=== PATIENT | female | born 1965 | race African-American/Black ===

== ENCOUNTER 2017-09-13 03:06 | Emergency (ER) | payer OTHER, SELFPAY ==
[2017-09-13 03:11] VITALS: BP 126/72; PULSE 95; RESP 16; TEMP 36.4; O2SAT 98; BMI 36.9
--- NOTE | 2017-09-13 03:38 | CT_ITS ---
CT abdomen pelvis wo con CLINICAL INDICATION: Constipation ITS.REASON: CONSTIPATION ORDERING PHYSICIAN: Kadeem Esparza MD PATIENT AGE: 51 years COMPARISON: None TECHNIQUE: Axial images obtained with sagittal and coronal reformats. PROCEDURE: Oral Contrast: None IV Contrast: None . FINDINGS: There is a 10 mm noncalcified pulmonary nodule in the left lower lobe. The liver, spleen, adrenal glands, and pancreas have an unremarkable unenhanced CT appearance. The gallbladder is contracted. No calcified stones. No renal calculi or hydronephrosis. No ureteral calculi. Unremarkable appendix. No evidence of diverticulitis, intestinal obstruction, or free air. There is diverticulosis of the sigmoid colon there is a mild amount retained colonic feces. No pelvic mass or focal inflammatory change within the pelvis. No abnormal fluid collections. Scattered small nodes present in the mesentery's. There are degenerative changes in the lumbar spine. No acute bony findings. IMPRESSION: 1. No acute abdominal or pelvic findings. 2. Mild constipation. 3. Diverticulosis of the sigmoid colon. 4. 10 mm left lower lobe pulmonary nodule. Recommend 3 month follow-up dedicated chest CT for further evaluation if patient is high risk for neoplasm and 6 month follow-up if patient is at low risk for neoplasm.
--- NOTE | 2017-09-13 03:38 | XR_ITS ---
XR chest 2V HISTORY: ITS.REASON: BRADYCARDIA ORDERING PHYSICIAN: Kadeem Esparza MD PATIENT AGE: 51 years COMPARISON: 10/01/2016 FINDINGS: Normal heart size. There is a tripolar cardiac pacemaker device present. The coronary sinus placed lead/LV the is now more peripheral overlying the left ventricle. Lungs are clear. No acute bony anomalies. There are degenerative changes in the shoulders with calcific tendinitis of the right shoulder. There is increased density anterior to T10-T11 vertebral body which may be related to osteophyte and may be confirmed with follow-up. Mild lordosis of the thoracic spine. IMPRESSION: No acute finding. Cardiac pacemaker in place as described above now with more peripheral positioning of the LV lead
[2017-09-13 03:52] LABS: Basophils % 0.4 % (0.1-2.0); Eosinophils # 0.2 K/mm3 (0.0-0.4); Eosinophils % 2.7 % (0.1-12.0); Hematocrit 43.4 % (37.0-47.0); Hemoglobin 14.1 g/dL (12.2-16.2); Lymphocytes # 2.7 K/mm3 (0.7-4.5); Mean Corpuscular HGB Conc 32.4 g/dL (31.8-35.4); Mean Corpuscular Hemoglobin 27.1 pg (27.0-31.2); Mean Corpuscular Volume 83.7 fl (81-99); Monocytes # 0.3 K/mm3 (0.1-1.0); Neutrophils # 5.1 K/mm3 (1.8-7.8); Neutrophils % 60.9 % (37.0-80.0); Platelet Count 286 K/mm3 (142-424); Red Blood Count 5.18 M/mm3 (4.20-5.40); Red Cell Distribution Width 12.8 % (11.5-17.5); White Blood Count 8.3 K/mm3 (4.8-10.8)
--- NOTE | 2017-09-13 03:55 | PC.NURSE ---
TO RADIOLOGY PER W/C
[2017-09-13 04:03] LABS: Alanine Aminotransferase 21 U/L (12-78); Albumin Level 3.5 gm/dL (3.4-5.0); Albumin/Globulin Ratio 0.8 (1.1-1.8); Alkaline Phosphatase 105 U/L (46-116); Anion Gap 12.6 mEq/L (5-15); Aspartate Amino Transferase 9 U/L (15-37); Bilirubin,Total 0.4 mg/dL (0.2-1.0); Blood Urea Nitrogen 8 mg/dL (7-18); Calcium 8.9 mg/dL (8.5-10.1); Carbon Dioxide 29 mmol/L (21.0-32.0); Chloride 101 mmol/L (98-107); Creatinine Clearance Estimated 70 mL/min (0-300); Creatinine,Serum 1.27 mg/dL (0.55-1.02); Estimated Glomerular Filt Rate 44 ml/min (>60); GFR (African American) 53 ML/MIN (>60); Globulin 4.5 gm/dl (1.3-3.2); Glucose 114 mg/dL (74-106); Potassium 3.6 mmoL/L (3.5-5.1); Sodium 139 mmol/L (136-145)
--- NOTE | 2017-09-13 04:05 | PC.NURSE ---
BACK FROM RADIOLOGY PER W/C.
[2017-09-13 04:18] LABS: Creatine Kinase 93 U/L (26-192); Troponin I < 0.02 ng/ml (0.00-0.06)
[2017-09-13 04:20] LABS: CKMB Relative Index 0.5 U/L (0-4.0); Creatine Kinase MB < 0.5 mg/ml (0.0-3.6)
--- NOTE | 2017-09-13 04:28 | HMH.EDGENADL ---
ED Disposition Clinical Impression: Pacemaker Constipation Qualifiers: Constipation type: unspecified constipation type Qualified Code(s): K59.00 - Constipation, unspecified Disposition: Home, Self-Care Condition on Discharge: Good Instructions: DI for Constipation Additional Instructions: call pcp for follow up Prescriptions: Polyethylene Glycol 3350 [Miralax 17gm Packet] 17 gm PO DAILY #30 packet - Critical Care Critical Care Time: No Attestation: On 09/13/17, the high probability of a clinically significant, sudden or life threatening deterioration of the following system(s) required my full and direct attention, intervention and personal management. The time I documented below is in addition to time spent performing reported procedures but includes the following listed in this critical care notation. Medical Decision Making - Medical Records Medical records reviewed: Yes: I reviewed the patient's medical records. Vital Signs: 09/13/17 03:11 Temperature 97.6 F Temperature Source Oral Pulse Rate [Right Brachial] 95 H Respiratory Rate 16 Blood Pressure [Right Arm] 126/72 Blood Pressure Mean [Right Arm] 90 Blood Pressure Source [Right Arm] Automatic Cuff Blood Pressure Position [Right Arm] Sitting 02 Sat by Pulse Oximetry 98 Oxygen Delivery Method Room Air - Lab Data Lab results reviewed: Yes: I reviewed the patient's lab results. Lab Results 09/13/17 03:45: WBC 8.3, RBC 5.18, Hgb 14.1, Hct 43.4, MCV 83.7, MCH 27.1, MCHC 32.4, RDW 12.8, Plt Count 286, MPV 8.0, Neut % (Auto) 60.9, Lymph % (Auto) 32.0, [place] % (Auto) 4.0, Eos % (Auto) 2.7, Baso % (Auto) 0.4, Neut # (Auto) 5.1, Lymph # (Auto) 2.7, [place] # (Auto) 0.3, Eos # (Auto) 0.2, Baso # (Auto) 0.0 09/13/17 03:45: Sodium 139, Potassium 3.6, Chloride 101, Carbon Dioxide 29, Anion Gap 12.6, BUN 8, Creatinine 1.27 H, Estimated Creat Clear 70, Estimated GFR 44 L, Est GFR ( Amer) 53 L, Glucose 114 H, Calcium 8.9, Total Bilirubin 0.4, AST 9 L, ALT 21, Alkaline Phosphatase 105, Total Protein 8.0, Albumin 3.5, Globulin 4.5 H, Albumin/Globulin Ratio 0.8 L 09/13/17 03:45: Total Creatine Kinase 93, CK-MB (CK-2) < 0.5, CK-MB (CK-2) Rel Index 0.5, Troponin I < 0.02 Result diagrams: 09/13/17 03:45 09/13/17 03:45 Orders (Tests/Meds): ORDERS Category Date Time Status CT abdomen pelvis wo con Stat Cat Scan 09/13/17 03:38 Ordered Chest XR 2 view (NOT portable) [XR chest 2V] Stat Exams 09/13/17 03:38 Ordered T4 (Thyroxine) Stat Lab 09/13/17 04:30 Ordered TSH [Thyroid Stimulating Hormone] Stat Lab 09/13/17 04:30 Ordered 12-lead EKG Request [ECG Request by /Hans] Stat Y 09/13/17 03:38 Ordered - Radiology Data #1 Image(s): Chest Image Reviewed: Yes I reviewed the patient's radiology image Preliminary Findings: Normal/NAD - CT Data CT Scan: Abdomen, Pelvis Time Received: 04:[address] Reviewed: Yes: I have viewed the radiologist's interpretation Preliminary Findings: Abnormal (see report ) - ECG Data Tracing #1 I reviewed this ECG and interpreted as documented below: Conduction abnormalities present: other (pacemaker) - Bryant Inquiry Pt receiving controlled substance: No General Adult HPI - General Chief complaint: PAIN Stated complaint: low heart rate,bowels ripped open ? Time Seen by Provider: 09/13/17 04:28 Mode of Arrival: Family Vehicle Source of Information: Patient, Medical Record Limitations: No Limitations Description of Symptoms (Recalled from ER Triage Doc. by RN): C/O CONSTIPATION. NO BM X 4 DAYS. C/O LOW HEART RATE WHICH ACCORDING TO PATIENT IS A SIDE EFFECT OF CONSTIPATION. HAS A PACEMAKER. STATES SHE AWAKENS EVERY MORNING AT 2:30 AND FEELS LIKE HER BLOOD STOPS MOVING AND DIZZY - History of Present Illness HPI narrative: pt with c/c of constipation w/o vomniting - Onset (ago): day(s) Location: abdomen - Related Data Home Medications Medication Instructions Recorded Confirmed Atorvas
--- NOTE | 2017-09-13 04:34 | ED_ITS ---
ED Disposition Clinical Impression: Pacemaker Constipation Qualifiers: Constipation type: unspecified constipation type Qualified Code(s): K59.00 - Constipation, unspecified Disposition: Home, Self-Care Condition on Discharge: Good Instructions: DI for Constipation Additional Instructions: call pcp for follow up Prescriptions: Polyethylene Glycol 3350 [Miralax 17gm Packet] 17 gm PO DAILY #30 packet - Critical Care Critical Care Time: No Attestation: On 09/13/17, the high probability of a clinically significant, sudden or life threatening deterioration of the following system(s) required my full and direct attention, intervention and personal management. The time I documented below is in addition to time spent performing reported procedures but includes the following listed in this critical care notation. Medical Decision Making - Medical Records Medical records reviewed: Yes: I reviewed the patient's medical records. Vital Signs: 09/13/17 03:11 Temperature 97.6 F Temperature Source Oral Pulse Rate [Right Brachial] 95 H Respiratory Rate 16 Blood Pressure [Right Arm] 126/72 Blood Pressure Mean [Right Arm] 90 Blood Pressure Source [Right Arm] Automatic Cuff Blood Pressure Position [Right Arm] Sitting 02 Sat by Pulse Oximetry 98 Oxygen Delivery Method Room Air - Lab Data Lab results reviewed: Yes: I reviewed the patient's lab results. Lab Results 09/13/17 03:45: WBC 8.3, RBC 5.18, Hgb 14.1, Hct 43.4, MCV 83.7, MCH 27.1, MCHC 32.4, RDW 12.8, Plt Count 286, MPV 8.0, Neut % (Auto) 60.9, Lymph % (Auto) 32.0 , [place] % (Auto) 4.0, Eos % (Auto) 2.7, Baso % (Auto) 0.4, Neut # (Auto) 5.1, Lymph # (Auto) 2.7, [place] # (Auto) 0.3, Eos # (Auto) 0.2, Baso # (Auto) 0.0 09/13/17 03:45: Sodium 139, Potassium 3.6, Chloride 101, Carbon Dioxide 29, Anion Gap 12.6, BUN 8, Creatinine 1.27 H, Estimated Creat Clear 70, Estimated GFR 44 L, Est GFR ( Amer) 53 L, Glucose 114 H, Calcium 8.9, Total Bilirubin 0.4, AST 9 L, ALT 21, Alkaline Phosphatase 105, Total Protein 8.0, Albumin 3.5, Globulin 4.5 H, Albumin/Globulin Ratio 0.8 L 09/13/17 03:45: Total Creatine Kinase 93, CK-MB (CK-2) < 0.5, CK-MB (CK-2) Rel Index 0.5, Troponin I < 0.02 Result diagrams: 09/13/17 03:45 09/13/17 03:45 Orders (Tests/Meds): ORDERS Category Date Time Status CT abdomen pelvis wo con Stat Cat Scan 09/13/17 03:38 Ordered Chest XR 2 view (NOT portable) [XR chest 2V] Stat Exams 09/13/17 03:38 Ordered T4 (Thyroxine) Stat Lab 09/13/17 04:30 Ordered TSH [Thyroid Stimulating Hormone] Stat Lab 09/13/17 04:30 Ordered 12-lead EKG Request [ECG Request by /Hans] Stat Y 09/13/17 03:38 Ordered - Radiology Data #1 Image(s): Chest Image Reviewed: Yes I reviewed the patient's radiology image Preliminary Findings: Normal/NAD - CT Data CT Scan: Abdomen, Pelvis Time Received: 04:[address] Reviewed: Yes: I have viewed the radiologist's interpretation Preliminary Findings: Abnormal (see report ) - ECG Data Tracing #1 I reviewed this ECG and interpreted as documented below: Conduction abnormalities present: other (pacemaker) - Bryant Inquiry Pt receiving controlled substance: No General Adult HPI - General Chief complaint: PAIN Stated complaint: low heart rate,bowels ripped open ? Time Seen by Provider: 09/13/17 04:28 Mode of Arrival: Family Vehicle Source
[2017-09-13 04:53] LABS: T4 (Thyroxine) 13.1 ug/dl (4.7-13.3); Thyroid Stimulating Hormone 2.63 uIU/ml (0.358-3.740)
[2017-09-13 05:04] VITALS: BP 118/62; PULSE 72; RESP 20; TEMP 36.4; O2SAT 100
== END 2017-09-13 05:15 | disposition home or self-care (01) ==
PROVIDERS: Emergency Provider Emergency Medicine
DX: K59.00 Constipation, unspecified (principal); Z95.0 Presence of cardiac pacemaker; F17.210 Nicotine dependence, cigarettes, uncomplicated; F12.10 Cannabis abuse, uncomplicated; Z79.899 Other long term (current) drug therapy
CPT/HCPCS: 71046; 74176; 80053; 82550; 82553; 84436; 84443; 84484; 85025; 93005; 93041; 99282; 99283

== ENCOUNTER 2019-01-10 16:15 | Emergency (ER) | payer OTHER, SELFPAY ==
[2019-01-10] VITALS (7 sets, daily range): BP systolic 99–120; BP diastolic 45–68; PULSE 85–122; RESP 16–20; TEMP 36.7–36.9; O2SAT 97–100; BMI 61.7
--- NOTE | 2019-01-10 16:24 | XR_ITS ---
XR chest portable HISTORY: ITS.REASON: weakness, heart racing ORDERING PHYSICIAN: Kadeem Andrew MD PATIENT AGE: 53 years COMPARISON: None FINDINGS: The cardiomediastinal silhouette and pulmonary vascularity are within normal limits. The lungs are clear without infiltrates, suspicious nodules, or pleural effusions. Left subclavian Mediport catheter is present and appears to be intact. There is no pneumothorax. No acute bony abnormalities. IMPRESSION: Negative chest, no acute finding
--- NOTE | 2019-01-10 16:34 | PC.NURSE ---
pt notified ER staff at this time that she woke up this morning and the L side of her body and is currently still having tingling on the L side of her face. Notified RAD of ct head stroke protocol at this time, spoke with Thao. Pt did not previously tell ER staff of this during initial triage
--- NOTE | 2019-01-10 16:36 | CT_ITS ---
CT head/brain wo con HISTORY: ITS.REASON: weakness ORDERING PHYSICIAN: Kadeem Andrew MD PATIENT AGE: 53 years COMPARISON: None TECHNIQUE: Axial images obtained without contrast. Brain and bone windows reviewed. All CT scans at the facility use one or more dose reduction, viz: automated exposure control, ma/kV adjustment per patient size (including targeted exams where dose is matched to indication, i.e. head), or iterative reconstruction technique. FINDINGS: There is no mass, acute hemorrhage or extra-axial fluid collection. There are small hypodense areas at the anterior commissure location and this is more prominent on the right. This is a common site for prominent perivascular spaces. Ventricles, sulci and cortical areas appear normal. There were no other areas of abnormal attenuation. There are dystrophic calcification within the vitreous body of the left orbital globe and the left globe is atrophic. There are low-lying cerebellar tonsils which are crowded at the foramen magnum. Visualized portions of the paranasal sinuses and mastoid air cells are clear. There is no acute osseous process. IMPRESSION: No definite acute intracranial process. Anterior commissure hypodensities, more likely prominent perivascular spaces although old lacunar infarcts are in the differential. If symptoms persist consider MRI. 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 Possible low lying cerebellar tonsils versus Chiari I malformation which could also necessary be better evaluated with the MRI if necessary.
--- NOTE | 2019-01-10 16:40 | PC.NURSE ---
pt to CT
[2019-01-10 16:47] LABS: Basophils % 0.7 % (0.1-2.0); Eosinophils # 0.3 K/mm3 (0.0-0.4); Eosinophils % 4.8 % (0.1-12.0); Hemoglobin 11.2 g/dL (12.2-16.2); Lymphocytes % 29.5 % (10-50); Mean Corpuscular HGB Conc 31.9 g/dL (31.8-35.4); Mean Corpuscular Hemoglobin 26.7 pg (27.0-31.2); Mean Corpuscular Volume 83.7 fl (81-99); Mean Platelet Volume 8.4 fl (7.4-10.4); Monocytes # 0.3 K/mm3 (0.1-1.0); Monocytes % 4.1 % (1.7-9.3); Neutrophils # 4.1 K/mm3 (1.8-7.8); Neutrophils % 60.9 % (37.0-80.0); Platelet Count 330 K/mm3 (142-424); Red Blood Count 4.19 M/mm3 (4.20-5.40); Red Cell Distribution Width 13.9 % (11.5-17.5); White Blood Count 6.7 K/mm3 (4.8-10.8)
[2019-01-10 17:00] LABS: Anion Gap 15.3 mEq/L (5-15); Blood Urea Nitrogen 46 mg/dL (7-18); Calcium 8.9 mg/dL (8.5-10.1); Carbon Dioxide 24 mmol/L (21.0-32.0); Chloride 94 mmol/L (98-107); Creatinine Clearance Estimated 22 mL/min (50-200); Creatinine,Serum 2.12 mg/dL (0.55-1.02); Estimated Glomerular Filt Rate 24 ml/min (>60); GFR (African American) 29 ML/MIN (>60); Glucose 109 mg/dL (74-106); Potassium 5.3 mmoL/L (3.5-5.1); Sodium 128 mmol/L (136-145); Troponin I < 0.02 ng/ml (0.00-0.06)
[2019-01-10 17:34] LABS: Lactic Acid 0.8 mmol/L (0.4-2.0)
--- NOTE | 2019-01-10 20:56 | HMH.EDWEAK ---
ED Disposition Clinical Impression: Renal insufficiency, Morbid obesity, Pacemaker, Hyponatremia, Hyperkalemia, Dizziness Disposition: Home, Self-Care Condition on Discharge: Good Instructions: DI for Muscle Weakness Additional Instructions: see card at 0900 Referrals: Kadeem Esparza MD [Primary Care Provider] - - Critical Care Critical Care Time: No Attestation: On 01/10/19, the high probability of a clinically significant, sudden or life threatening deterioration of the following system(s) required my full and direct attention, intervention and personal management. The time I documented below is in addition to time spent performing reported procedures but includes the following listed in this critical care notation. Medical Decision Making - Medical Records Medical records reviewed: Yes: I reviewed the patient's medical records. - Bryant Inquiry Pt receiving controlled substance: No Vital Signs: 01/10/19 16:21 01/10/19 17:21 01/10/19 18:00 Temperature 98.0 F Temperature Source Oral Pulse Rate [Apical] 122 H 100 H 110 H Pulse Rate [Orthostatic Lying Right Radial] Pulse Rate [Orthostatic Sitting Right Radial] Pulse Rate [Orthostatic Standing Right Radial] Respiratory Rate 20 20 Blood Pressure [Orthostatic Lying Right Arm] Blood Pressure [Orthostatic Sitting Right Arm] Blood Pressure [Orthostatic Standing Right Arm] Blood Pressure [Right Arm] 111/55 L 99/45 L 106/63 L Blood Pressure Mean [Right Arm] 73 63 77 Blood Pressure Source [Right Arm] Automatic Cuff Automatic Cuff Automatic Cuff Blood Pressure Position [Right Arm] Sitting Sitting Sitting 02 Sat by Pulse Oximetry 97 100 100 Oxygen Delivery Method Room Air Room Air Room Air 01/10/19 18:38 01/10/19 18:46 Temperature Temperature Source Pulse Rate [Apical] 98 H Pulse Rate [Orthostatic Lying Right Radial] 85 Pulse Rate [Orthostatic Sitting Right Radial] 91 H Pulse Rate [Orthostatic Standing Right Radial] 91 H Respiratory Rate Blood Pressure [Orthostatic Lying Right Arm] 103/53 L Blood Pressure [Orthostatic Sitting Right Arm] 118/55 L Blood Pressure [Orthostatic Standing Right Arm] 105/46 L Blood Pressure [Right Arm] 104/45 L Blood Pressure Mean [Right Arm] 64 Blood Pressure Source [Right Arm] Automatic Cuff Blood Pressure Position [Right Arm] Sitting 02 Sat by Pulse Oximetry 100 Oxygen Delivery Method Room Air - Lab Data Lab results reviewed: Yes: I reviewed the patient's lab results. Lab Results 01/10/19 16:35: WBC 6.7, RBC 4.19 L, Hgb 11.2 L, Hct 35.0 L, MCV 83.7, MCH 26.7 L, MCHC 31.9, RDW 13.9, Plt Count 330, MPV 8.4, Neut % (Auto) 60.9, Lymph % (Auto) 29.5, [place] % (Auto) 4.1, Eos % (Auto) 4.8, Baso % (Auto) 0.7, Neut # (Auto) 4.1, Lymph # (Auto) 2.0, [place] # (Auto) 0.3, Eos # (Auto) 0.3, Baso # (Auto) 0.0 01/10/19 16:35: Sodium 128 L, Potassium 5.3 H, Chloride 94 L, Carbon Dioxide 24, Anion Gap 15.3 H, BUN 46 H, Creatinine 2.12 H, Estimated Creat Clear 22, Estimated GFR 24 L, Est GFR ( Amer) 29 L, Glucose 109 H, Calcium 8.9, Troponin I < 0.02 01/10/19 16:35: Lactate 0.8 01/10/19 16:35: TSH 1.98, Thyroxine (T4) 9.0 01/10/19 18:20: Urine Color Yellow, Urine Appearance Clear, Urine pH 5.5, Ur Specific [place] 1.010, Urine Protein Negative, Urine Glucose (UA) Negative, Urine Ketones Negative, Urine Blood Negative, Urine Nitrate Negative, Urine Bilirubin Negative, Urine Urobilinogen 0.2, Ur Leukocyte Esterase Negative, Urine WBC Occasional, Ur Squamous Epith Cells 3-5, Urine Bacteria Trace Result diagrams: 01/10/19 16:35 01/10/19 16:35 Orders (Tests/Meds): ED MEDICATIONS Generic Name Dose Route Start Last Admin Trade Name Freq PRN Reason Stop Dose Admin Sodium Chloride 1,000 mls @ 999 mls/hr 01/10/19 21:15 01/10/19 21:14 Sod Chlor 0.9% 1000ml Bag IV 01/10/19 22:15 999 mls/hr .Q1H1M GREGORIA Administration ORDERS Category Date Time Status Blood Culture Stat Micro 01/10/19 1
--- NOTE | 2019-01-10 21:00 | ED_ITS ---
ED Disposition Clinical Impression: Renal insufficiency, Morbid obesity, Pacemaker, Hyponatremia, Hyperkalemia, Dizziness Disposition: Home, Self-Care Condition on Discharge: Good Instructions: DI for Muscle Weakness Additional Instructions: see card at 0900 Referrals: Kadeem Esparza MD [Primary Care Provider] - - Critical Care Critical Care Time: No Attestation: On 01/10/19, the high probability of a clinically significant, sudden or life threatening deterioration of the following system(s) required my full and direct attention, intervention and personal management. The time I documented below is in addition to time spent performing reported procedures but includes the following listed in this critical care notation. Medical Decision Making - Medical Records Medical records reviewed: Yes: I reviewed the patient's medical records. - Bryant Inquiry Pt receiving controlled substance: No Vital Signs: 01/10/19 16:21 01/10/19 17:21 01/10/19 18:00 Temperature 98.0 F Temperature Source Oral Pulse Rate [Apical] 122 H 100 H 110 H Pulse Rate [Orthostatic Lying Right Radial] Pulse Rate [Orthostatic Sitting Right Radial] Pulse Rate [Orthostatic Standing Right Radial] Respiratory Rate 20 20 Blood Pressure [Orthostatic Lying Right Arm] Blood Pressure [Orthostatic Sitting Right Arm] Blood Pressure [Orthostatic Standing Right Arm] Blood Pressure [Right Arm] 111/55 L 99/45 L 106/63 L Blood Pressure Mean [Right Arm] 73 63 77 Blood Pressure Source [Right Arm] Automatic Cuff Automatic Cuff Automatic Cuff Blood Pressure Position [Right Arm] Sitting Sitting Sitting 02 Sat by Pulse Oximetry 97 100 100 Oxygen Delivery Method Room Air Room Air Room Air 01/10/19 18:38 01/10/19 18:46 Temperature Temperature Source Pulse Rate [Apical] 98 H Pulse Rate [Orthostatic Lying Right Radial] 85 Pulse Rate [Orthostatic Sitting Right Radial] 91 H Pulse Rate [Orthostatic Standing Right Radial] 91 H Respiratory Rate Blood Pressure [Orthostatic Lying Right Arm] 103/53 L Blood Pressure [Orthostatic Sitting Right Arm] 118/55 L Blood Pressure [Orthostatic Standing Right Arm] 105/46 L Blood Pressure [Right Arm] 104/45 L Blood Pressure Mean [Right Arm] 64 Blood Pressure Source [Right Arm] Automatic Cuff Blood Pressure Position [Right Arm] Sitting 02 Sat by Pulse Oximetry 100 Oxygen Delivery Method Room Air - Lab Data Lab results reviewed: Yes: I reviewed the patient's lab results. Lab Results 01/10/19 16:35: WBC 6.7, RBC 4.19 L, Hgb 11.2 L, Hct 35.0 L, MCV 83.7, MCH 26.7 L, MCHC 31.9, RDW 13.9, Plt Count 330, MPV 8.4, Neut % (Auto) 60.9, Lymph % (Auto) 29.5, [place] % (Auto) 4.1, Eos % (Auto) 4.8, Baso % (Auto) 0.7, Neut # (Auto) 4.1, Lymph # (Auto) 2.0, [place] # (Auto) 0.3, Eos # (Auto) 0.3, Baso # (Auto) 0.0 01/10/19 16:35: Sodium 128 L, Potassium 5.3 H, Chloride 94 L, Carbon Dioxide 24, Anion Gap 15.3 H, BUN 46 H, Creatinine 2.12 H, Estimated Creat Clear 22, Es timated GFR 24 L, Est GFR ( Amer) 29 L, Glucose 109 H, Calcium 8.9, Troponin I < 0.02 01/10/19 16:35: Lactate 0.8 01/10/19 16:35: TSH 1.98, Thyroxine (T4) 9.0 01/10/19 18:20: Urine Color Yellow, Urine Appearance Clear, Urine pH 5.5, Ur Specific [place] 1.0
[2019-01-10 21:05] LABS: Microscopic, Urine URINE MICROSCOPIC (MICROSCOPIC)
[2019-01-10 21:07] LABS: Appearance,Urine CLEAR (Clear); Bilirubin,Urine Negative (Negative); Blood, Urine Negative (Negative); Color,Urine YELLOW (Yellow); Glucose,Urine (UA) Negative (Negative); Ketones,Urine Negative (Negative); Leukocyte Esterase,Urine Negative (Negative); Nitrate,Urine Negative (Negative); PH,Urine 5.5 (5.0-8.5); Protein,Urine Negative (Negative); Urobilinogen,Urine 0.2 EU/dl (0.2)
[2019-01-10 21:11] LABS: Bacteria,Urine Trace /lpf; WBC,Urine Occasional #/hpf (0-3)
[2019-01-10 21:37] LABS: Thyroid Stimulating Hormone 1.98 uIU/ml (0.358-3.740)
--- NOTE | 2019-01-10 22:49 | PC.NURSE ---
on phone with Bryn
== END 2019-01-10 23:02 | disposition home or self-care (01) ==
PROVIDERS: Emergency Provider Emergency Medicine; PCP Emergency Medicine
DX: N28.9 Disorder of kidney and ureter, unspecified (principal); Z95.0 Presence of cardiac pacemaker; I10 Essential (primary) hypertension; E87.5 Hyperkalemia; E78.5 Hyperlipidemia, unspecified; F17.210 Nicotine dependence, cigarettes, uncomplicated; E66.01 Morbid (severe) obesity due to excess calories; Z68.44 Body mass index [BMI] 60.0-69.9, adult
CPT/HCPCS: 70450; 71045; 80048; 81001; 83605; 84436; 84443; 84484; 85025; 87040; 93005; 96365; 96374; 99284

== ENCOUNTER → 2019-01-30 14:24 | Outpatient (CLI) | payer OTHER, SELFPAY ==
--- NOTE | 2019-01-30 14:27 | CA_ITS ---
PROCEDURE: 2-D M-mode and color Doppler study INDICATIONS FOR THE TEST: Chest pain+ COPD Heart Murmur Tobacco Smoking+ Palpitations Fatigue Syncope Edema+ Hypertension+Diabetes Mellitus Rheumatic Fever SOB SAWANT Obesity+Hyperlipidemia+ Family History HD Additional History HSS, pacemaker, marijuana use, chronic HF PATIENT INFORMATION HEIGHT: 60 WEIGHT: 296 GENDER: Female B/P: 109/43 2-D/M-MODE INTERPRETATION: 2-D MEASUREMENTS OBSERVED VALUES IN CMS Right Ventricular Dimension (RVDd) 2.1 Interventricular Septum (Thickness)(IVsd) 0.7 Left Ventricular Internal Dimensions(LVIDd) 4.6 Left Ventricular Posterior Wall (Thickness)(LVPWd) 0.7 Aortic Root 2.5 Aortic Cusp Separation 1.6 Left Atrial Dimensions (LAD) 2.7 2D 1. Left atrium is mildly enlarged, left ventricle is normal size, mild concentric left ventricular hypertrophy, visually estimated ejection fraction of 55% with no regional wall motion abnormality. 2. The right atrium and right ventricle are mildly enlarged with normal contractility, there is a pacemaker lead seen in the right atrium and right ventricle. 3. The aortic valve is minimally thickened and calcified. 4. The mitral and tricuspid valve leaflets are minimally thickened. 5. The pulmonic valve is poorly visualized. 6. No significant pericardial effusion noted. DOPPLER INTERROGATION: Doppler interrogation of the aortic, mitral and tricuspid valvular presence of mild mitral and tricuspid regurgitation, calculated right ventricular systolic pressure is 51 mmHg consistent with moderate pulmonary hypertension, diastolic parameters are inconclusive. CONCLUSION: 1. Mildly enlarged left atrium, normal left ventricular size, mild concentric left ventricular hypertrophy, visually estimated ejection fraction 55% with no regional wall motion abnormality, diastolic parameters are inconclusive. 2. Mildly enlarged right ventricle with normal contractility, there is a pacemaker lead seen right ventricle. 3. Mild mitral and tricuspid regurgitation, calculated ventricular systolic pressure is 51 mmHg consistent with moderate pulmonary hypertension. 4. No significant pericardial effusion noted.
== END ==
PROVIDERS: PCP Emergency Medicine; Visit Provider Internal Medicine Cardiovascular Disease
DX: R06.00 Dyspnea, unspecified (principal); R07.9 Chest pain, unspecified; R94.31 Abnormal electrocardiogram [ECG] [EKG]; I10 Essential (primary) hypertension; I50.9 Heart failure, unspecified
CPT/HCPCS: 93306

== ENCOUNTER → 2019-02-08 10:33 | Outpatient (CLI) | payer OTHER, SELFPAY ==
[2019-02-08 12:01] LABS: Anion Gap 15.1 mEq/L (5-15); Blood Urea Nitrogen 31 mg/dL (7-18); Calcium 9.3 mg/dL (8.5-10.1); Carbon Dioxide 24 mmol/L (21.0-32.0); Chloride 104 mmol/L (98-107); Creatinine,Serum 1.84 mg/dL (0.55-1.02); Estimated Glomerular Filt Rate 29 ml/min (>60); GFR (African American) 35 ML/MIN (>60); Glucose 105 mg/dL (74-106); Potassium 5.1 mmoL/L (3.5-5.1); Sodium 138 mmol/L (136-145)
== END ==
PROVIDERS: Visit Provider Internal Medicine Cardiovascular Disease
DX: I10 Essential (primary) hypertension (principal); I50.9 Heart failure, unspecified; R06.00 Dyspnea, unspecified; R07.9 Chest pain, unspecified; R94.31 Abnormal electrocardiogram [ECG] [EKG]; Z95.0 Presence of cardiac pacemaker
CPT/HCPCS: 36415; 80048; 83880

== ENCOUNTER → 2019-06-22 11:34 | Outpatient (CLI) | payer OTHER, SELFPAY | PROVIDERS: PCP Emergency Medicine; Visit Provider Internal Medicine Cardiovascular Disease | DX: G47.33 Obstructive sleep apnea (adult) (pediatric) (principal); G47.9 Sleep disorder, unspecified; R06.02 Shortness of breath; R06.83 Snoring; R40.0 Somnolence ==

== ENCOUNTER → 2020-10-15 11:08 | Outpatient (CLI) | payer OTHER, SELFPAY ==
--- NOTE | 2020-10-15 11:09 | CT_ITS ---
PROCEDURE: CT HEAD/BRAIN WO CON CLINICAL INDICATION: dizziness, numbness and tingling COMPARISON: CT HEADWO CT head/brain wo con from 01/10/2019 TECHNIQUE: Axial images obtained. All CT scans at the facility use one or more dose reduction, viz: automated exposure control, ma/kV adjustment per patient size (including targeted exams where dose is matched to indication, i.e. head), or iterative reconstruction technique. FINDINGS: No midline shift, mass effect, intracranial hemorrhage, hydrocephalus, or extra-axial fluid collection is evident. The [place]-white matter differentiation is within normal limits. There is possible low-lying cerebellar tonsils. The calvarium has an unremarkable appearance. The mastoid air cells and the paranasal sinuses are clear. Left pthisis bulbi is noted. IMPRESSION: No acute intracranial finding. No interval change compared to prior study. Dictated by: Jennifer Aguilera 10/15/2020 15:28 Jennifer Aguilera in [facility] 10/15/2020 15:28
== END ==
PROVIDERS: PCP Emergency Medicine; Visit Provider Emergency Medicine
DX: R42 Dizziness and giddiness (principal); R20.0 Anesthesia of skin; R20.2 Paresthesia of skin
CPT/HCPCS: 70450

== ENCOUNTER → 2022-10-04 15:39 | Outpatient (CLI) | payer OTHER, SELFPAY ==
--- NOTE | 2022-10-04 15:53 | MM_ITS ---
PROCEDURE INFORMATION: Exam: MG Bilateral Screening 3D Mammography Exam date and time: 10/04/2022 3:50 PM Age: 56 years old Clinical indication: Screening mammogram TECHNIQUE: Imaging protocol: Bilateral Screening tomosynthesis and 2D mammography including computer-aided detection (CAD) when performed. COMPARISON: No relevant prior studies available. FINDINGS: MAMMOGRAPHY: Breast composition: There are scattered areas of fibroglandular density. Mass: None. Architectural distortion: No new or suspicious architectural distortion. Calcifications: No new or suspicious calcifications are present Asymmetric density: No new or suspicious asymmetric density is present Skin thickening: None. Axillary adenopathy: None. Upper posterior left pacemaker IMPRESSION: No mammographic evidence of malignancy. Recommend annual screening mammography unless otherwise clinically indicated. ASSESSMENT: BI-RADS category 1: Negative
== END ==
PROVIDERS: PCP Internal Medicine; Visit Provider Emergency Medicine
DX: Z12.31 Encounter for screening mammogram for malignant neoplasm of breast (principal)
CPT/HCPCS: 77063; 77067

== ENCOUNTER 2025-05-15 14:53 | Outpatient (CLI) | payer OTHER, SELFPAY ==
[2025-05-15 19:45] LABS: Hematocrit 40.2 % (37.0-47.0); Hemoglobin 12.1 g/dL (12.2-16.2); Immature Granulocytes % 0.3 %; Mean Corpuscular HGB Conc 30.1 g/dL (31.8-35.4); Mean Corpuscular Hemoglobin 25.2 pg (27.0-31.2); Mean Corpuscular Volume 83.8 fl (81-99); Nucleated Red Blood Cells % 0 %; Platelet Count 334 K/mm3 (142-424); Red Blood Count 4.80 M/mm3 (4.20-5.40); Red Cell Distribution Width-SD 44.6 fL; White Blood Count 9.4 K/mm3 (4.8-10.8)
[2025-05-15 20:09] LABS: Alanine Aminotransferase 13 U/L (12-78); Albumin Level 3.1 g/dl (3.5-5.0); Albumin/Globulin Ratio 0.8 (1.1-1.8); Alkaline Phosphatase 115 U/L (38-126); Anion Gap 9.9 mEq/L (5-15); Aspartate Amino Transferase 23 U/L (14-36); Bilirubin,Total 0.5 mg/dl (0.2-1.3); Blood Urea Nitrogen 13 mg/dl (7-17); Calcium 8.9 mg/dl (8.4-10.2); Carbon Dioxide 30 mmol/L (22.0-30.0); Chloride 101 mmol/L (98-107); Cholesterol 317 mg/dl (140-200); Creatinine,Serum 1.00 mg/dl (0.52-1.04); Estimated Glomerular Filt Rate 57 ml/min (>60); GFR (African American) 68 ML/MIN (>60); Globulin 3.9 g/dL (1.3-3.2); Glucose 114 mg/dl (74-100); HDL Cholesterol 57 mg/dl (40-60); Potassium 3.9 mmoL/L (3.5-5.1); Sodium 137 mmol/L (136-145); Total Protein,Serum 7.0 g/dl (6.3-8.2); Triglycerides 94 mg/dl (30-150)
[2025-05-15 20:38] LABS: Hemoglobin A1C 6.0 % (4.0-6.0)
--- OUTSIDE RECORDS SUMMARY | 2025-05-16 13:11 | XMS_ITS | Clinical Summary ---
Author Organization [facility] Address [address] [id number] Care Team Providers Care Clinical Psychology Teacher Name Role Phone Kadeem Esparza MD Primary Care Provider [phone] Allergies No known active allergies Medications furosemide (LASIX) 40 MG tablet TAKE TWO TABLETS BY MOUTH EVERY MORNING AND 1 tablet every other DAY AT night 02/22/2022 Active lisinopril (PRINIVIL,ZESTR IL) 20 MG tablet Take 1 tablet by mouth Daily. 02/22/2022 Active famotidine (PEPCID) 20 MG tablet Take 1 tablet by mouth Daily. 02/22/2022 Active carvedilol (COREG) 25 MG tablet Take 2 tablets by mouth 2 (Two) Times a Day. 02/22/2022 Active loratadine (CLARITIN) 10 MG tablet Take 1 tablet by mouth Daily. 02/22/2022 Active Social History Tobacco Use Types Packs/Day Years Used Date Smoking Tobacco: Some Days Cigarettes Tobacco Cessation:Ready to Q uit: Not Asked; Counseling Given: Not Answered Alcohol Use Standard Drinks/Week Comments Never 0 (1 standard drink = 0.6 oz pur e alcohol) Abuse Screen Answer Date Recorded Unsafe at Home or Work/School Not on file Feels Threatened by Someone? Not on file Does Anyone Keep You from Co ntacting Others or Doint Things Outside the Home? Not on file 04/29/2023 Physical Sign of Abuse Present Not on file 1 Housing Stability Answer Date Recorded Current Living Arrangements Not on file 04/17 Potentially Unsafe Housing Conditions Not on rasheeda e 04/29/2023 Family and Community Support Answer Yannick e Recorded Help with Day-to-Day Activities Not on file 04/29/2023 Lonely or Isolated Not on file 04/29/2023 Employment Answer Date Recorded Do you want help finding or keeping work or a susannah b? Not on file 04/29/2023 Disabilities Answer Date Recorded Concentrating, Remembering, or Making Decisions Difficulty Not on file 04/29/2023 Doing Errands Independently Difficulty Not on fi le 04/29/2023 Education Answer Date Recorded Help with school or training? Not on file Preferred Language Not on file 04/29/2023 Comments No Sex and Gender Information Value Date Recorded Sex Assigned at Not on file Legal Sex Female 6:10 PM EDT Gender Identity Not on file Sexual Orientation Not on file Last Filed Vital Signs Vital Sign Reading Time Taken Comments Blood Pressure 148/76 04/28/2022 6:31 PM EDT Pulse 76 04/28/2022 6:31 PM EDT Temperature 36.6 C (97.9 F) 04/28/2022 6:31 PM EDT Respiratory Rate 18 04/28/2022 6:31 PM EDT Oxygen Saturation 98% 04/28/2022 6:31 PM EDT Inhaled Oxygen Concentration - - Weight 143 kg (316 lb) 04/28/2022 6:31 PM EDT Height 152.4 cm (5') 04/28/2022 6:31 PM EDT Body Mass Index 61.71 04/28/2022 6:31 PM EDT Plan of Treatment Health Maintenance Due Date Last Done Comments ANNUAL PHYSICAL 1965 Annual Gynecologic Pelvic and Breast Exam 1965 HEPATITIS C SCREENING 1965 TDAP/TD VACCINES (1 - Tdap) 12/24/1983 MAMMOGRAM 2004 COLOGUARD 2009 COLON CANCER SCREENING [address] COLONOGRAPHY 2009 FECAL OCCULT BLOOD TEST 2009 FIT Testing (1 year) 2009 Pneumococcal Vaccine 50+ (1 of 1 - PCV) 2014 ZOSTER VACCINE (1 of 2) 2014 INFLUENZA VACCINE 02/15/2025 COLONOSCOPY 01/27/2028 01/26/2018 COLORECTAL CANCER SCREENING 01/27/2028 Insurance AETNA [facility] Care Teams Clinical Psychology Teacher Relationship Specialty Start Date End Date Kadeem Esparza MD [address] [facility] [address] ATTN: [place] [address] PCP - General Emergency Medicine 04/28/22
--- OUTSIDE RECORDS SUMMARY | 2025-05-16 13:11 | XMS_ITS | Clinical Summary ---
Author Organization [email or web address] ([place], [place], [place], [place]) Address [address] [place] [address] Care Team Providers Care Uppers Edge Burnisher Name Role Phone Unavailable Primary Care Provider Unavailabl e Social History Tobacco Use Types Packs/Day Years Used Date Smoking Tobacco: Never Assessed Food Insecurity Answer Date Recorded Food run out past 12 months Not on file 07/19 Food did not last past 12 months Not on file 08/06/2023 Employment Answer Date Recorded Help finding and keeping a job Not on file 0 08/06/2023 Family and Community Support Answer Yannick e Recorded Help with Day to Day Activities Not on file 08/06/2023 Feeling Lonely or Isolated Not on file 08/06 Educational Attainment Answer Date Francis rded Speak language other than Norwegian at home Not on file 08/06/2023 Want help with school or training Not on file 08/06/2023 Substance Use Answer Date Recorded Used prescription meds for non-medical reasons N ot on file 08/06/2023 Used illegal drugs past 12 months Not on file 08/06/2023 Comments Unknown Sex and Gender Information Value Date Recorded Sex Assigned at Not on file 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
--- OUTSIDE RECORDS SUMMARY | 2025-05-16 13:11 | XMS_ITS | Clinical Summary ---
Author Organization [facility] Address [address] [place] [address] Care Team Providers Care Area Intelligence Technician Name Role Phone Kadeem Esparza MD Primary Care Provider + [phone] Allergies No known active allergies Medications No known medications Active Problems No known active problems Family History Medical History Relation Name Comments Diabetes Father Hypertension Father Kidney disease Father Liver disease Father Stroke Father Cardiac disorder Mother Diabetes Mother Hypertension Mother Relation Name Status Comments Father Mother Social History Tobacco Use Types Packs/Day Years Used Date Smoking Tobacco: Every Day Alcohol Use Standard Drinks/Week Comments Yes 0 (1 standard drink = 0.6 oz pure alcohol) Alcoholic Drinks/day: Social alcohol use CAGE ASSESSMENT Answer Date Recorded Cage unable to access Not on file 07/07/2022 Maximum number of drinks you had on a given occasion in the last month? 0 drinks 07/07/2022 How many alcoholic Beverages do you typically drink in a week? 0 - 7 per week 07/07/2022 Have you ever felt you should CUT down on your d rinking? 0 07/07/2022 Have you been ANNOYED by peo ple criticizing your drinking? 0 07/07/2022 Have you felt GUILTY about your drinking? 0 07/07/2022 Have you had a drink first t ivis in the morning (EYE-SAMPLE PASTER) to steady your nerves or to get rid of a hangover? 0 07/07/2022 CAGE Questionnaire Score 0 022 Comments Unknown Sex and Gender Information Value Date Recorded Sex Assigned at Not on file Legal Sex Female 7:12 PM EDT Gender Identity Not on file Sexual Orientation Not on file Last Filed Vital Signs Vital Sign Reading Time Taken Comments Blood Pressure 133/73 07/07/2022 12:15 PM EST Pulse 71 07/07/2022 12:15 PM EST Temperature 36.6 C (97.8 F) 07/07/2022 12:15 PM EST Respiratory Rate 16 07/07/2022 12:15 PM EST Oxygen Saturation 97% 07/07/2022 12:15 PM EST Inhaled Oxygen Concentration - - Weight 127 kg (279 lb 15.8 oz) 07/07/2022 7:31 A M EST Height 164 cm (5' 4.57 ) 07/07/2022 7:31 AM EST Body Mass Index 47.22 07/07/2022 7:31 AM EST Plan of Treatment Health Maintenance Due Date Last Done Comments [facility]-Depression Screening 1965 [facility]-/Child/Adol SDOH Screenings 1965 [facility]-Obesity Intervention 1970 [facility]- SDOH Screenings 1982 [facility]-Adult SDOH Screenings 1982 [facility]-DTaP,Tdap,and Td Vaccine s (1 - Tdap) 12/24/1983 [facility]-Pap Smear 1985 [facility]-Cervical Cancer Screening 1994 [facility]-HPV/Cotest 1994 CT Colonography 2009 FIT-DNA 2009 FIT 2009 FOBT 2009 Sigmoidoscopy 2009 [facility]-Breast Cancer Screening 2014 [facility]-Pneumococcal Vaccine: 50 + Years (1 of 1 - PCV) 2014 [facility]-Zoster Vaccines (1 of 2) 2014 [facility]-RSV Vaccine: 60+ Years o r (1 - Risk 60-74 years 1-dose series) 2024 [id number] Vaccine (1 - 20 24-25 season) 2025 [facility]-Influenza Vaccine (#1) 2025 Colonoscopy 01/27/2028 01/26/2018 [facility]-Colorectal Cancer Screening 01/27/2028 [facility]-HIV Screening Completed 07/07/2022 [facility]-Hepatitis C Screening Completed 07/07/2022 HPV Vaccines Aged Out No longer eligi ble based on patient's age to complete this topic [facility]-HIB Vaccines Aged Out No longer e ligible based on patient's age to complete this topic [facility]-Hepatitis A Vaccines Aged Out No longer eligible based on patient's age to complete this topic [facility]-IPV Vaccines Aged Out No longer e ligible based on patient's age to complete this topic [facility]-Rotavirus Vaccines Aged Out No lo nger eligible based on patient's age to complete this topic Procedures Procedure Name Priority Date/Time Associated Diagnosis Comments HEPATITIS C ANTIBODY - ED W/REFLEX TO HCV QUANT PCR STAT 07/07/2022 7:38 AM EST HIV 1/2 ANTIBODY/ANTIGEN SCREEN WITH REFLEX TO HIV I/II DIFFERENTIATION STAT 07/07/2022 7:38 AM EST COLONOSCOPY 01/26/2018 from Last 3 Months or Most Recently Relevant to Health Maintenance Results * HIV 1 & 2 Antibody/Antigen Screen (07/07/2022 7:38 AM EST) HIV 1 & 2 Antibody/Anti gen Screen Nonreactive Nonreactive 07/07/2022 9:45 AM EST [facility] Blood Venous blood specimen / Unknown Venipuncture / Unknown 07/07/2022 7:38 AM EST 07/07/2022 8:43 AM EST us Sagar Rivera MD LAB BLOOD ORDERABLES Final Res ult Performing Organization Address City/[facility] Co de Phone Number [facility] [address] [place] [address] * Hepatitis C Antibody - ED (07/07/2022 7:38 AM EST) Hepatitis C Antibody Negative Negative 07/07/2022 9:43 AM EST [facility] Blood Venous blood specimen / Unknown Venipuncture / Unknown 07/07/2022 7:38 AM EST 07/07/2022 8:43 AM EST us Sagar Rivera MD LAB BLOOD ORDERABLES Final Res ult Performing Organization Address City/[facility] Co de Phone Number [facility] [address] [place] [address] * COLONOSCOPY (01/26/2018) Anatomical Region Laterality Modality Endoscopy Narrative 01/26/2018 Ordered by an unspecified provider. us Historical Provider GI PROCEDURE ORDERABLES Yvonne l Result from Last 3 Months or Most Recently Relevant to Health Maintenance Insurance [employer] Care Teams Area Intelligence Technician Relationship Specialty Start Date End Date Kadeem Esparza MD [address] [place] [id number] PCP - General 11/28/20
--- OUTSIDE RECORDS SUMMARY | 2025-05-16 13:11 | XMS_ITS | Referral Summary ---
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
== END 2025-05-15 23:59 | disposition home or self-care (01) ==
LOC: LAB.DROPOF 05-16 13:08
PROVIDERS: PCP Student in an Organized Health Care Education/Training Program; Visit Provider Student in an Organized Health Care Education/Training Program
DX: I11.0 Hypertensive heart disease with heart failure (principal); E66.01 Morbid (severe) obesity due to excess calories; Z68.43 Body mass index [BMI] 50.0-59.9, adult; I50.22 Chronic systolic (congestive) heart failure
CPT/HCPCS: 80053; 80061; 83036; 85025; 87522

== ENCOUNTER 2025-05-22 13:59 | Outpatient (CLI) | payer OTHER, SELFPAY ==
--- OUTSIDE RECORDS SUMMARY | 2025-04-09 00:38 | XMS_ITS | Continuity of Care Document ---
Author Organization [facility] Phone Care Team Providers Care Air Table Operator Name Role Phone NO, DEFINED P Unavailable Unavailable NO, DEFINED P Primary Care Unavailable KIM MCKEON Admitting KIM MCKEON Primary Attending [phone] ALLERGIES AND ADVERSE REACTIONS ALLERGIES AND ADVERSE REACTIONS Code System Allergy Substance Adverse Reaction Date Reaction (Severity) Comment Status Reported By Updated By No Known Allergies [id number] on April 06, 2025 2:23:04 PM UTC RESULTS Patient: ADONIS FELIX Date of : 1965 1 LABORATORY RESULTS ORDER 100: CBC AUTO W DIFF ( LOINC: 50583-6) ORDER DATE: April 06, 2025 2:23:00 PM UTC Specimen Source: EDTA Specimen Type: Blood specime n with EDTA PERFORMING LAB: [address] [id number] Result Comment: Final Result Date: April 06, 2025 2:51:00 PM UTC (TECH: JCG) LOINC TEST FLAG RESULT REFERENCE RANGE UPDA KEEGAN BY 6690-2 Leukocytes [#/volume] in Blood by Automated count N 7.8 K/ul 4.0 K/ul - 10.5 K/ul April 06, 2025 2:51:00 PM UTC (TECH: JCG) 789-8 Erythrocytes [#/volume] in Blood by Automated count N 5.2 M/mm3 4.2 M/mm3 - 6.4 M/mm3 April 06, 2025 2:51:00 PM UTC (TECH: JCG) 718-7 Hemoglobin [Mass/volume] in Blood N 13.3 gm/dl 12.5 gm/dl - 16.0 gm/dl April 06, 2025 2:51:00 PM UTC (TECH: JCG) 71655-8 Hematocrit [Volume Fraction] of Blood N 42.8 % 37.0 % - 47.0 % April 06, 2025 2:51:00 PM UTC (TECH: JCG) 787-2 Erythrocyte mean corpuscular volume [Entitic volume] by Automated count N 82.5 fl 78 fl - 100 fl April 06, 2025 2:51:00 PM UTC (TECH: JCG) 785-6 Erythrocyte mean corpuscular hemoglobin [Entitic mass] by Automated count L 25.6 pg 27 pg - 31 pg April 06, 2025 2:51:00 PM UTC (TECH: JCG) 786-4 Erythrocyte mean corpuscular hemoglobin concentration [Mass/volume] by Automated count L 31.1 g/dl 32 g/dl - 36 g/dl April 06, 2025 2:51:00 PM UTC (TECH: JCG) 07604-3 Erythrocyte distribution width [Ratio] H 14.4 % 11.5 % - 14.0 % April 06, 2025 2:51:00 PM UTC (TECH: JCG) 777-3 Platelets [#/volume] in Blood by Automated count N 277 K/ul 150 K/ul - 450 K/ul April 06, 2025 2:51:00 PM UTC (TECH: JCG) 73806-5 Platelet mean volume [Entitic volume] in Blood by Automated count H 10.5 fl 6 fl - 9.5 fl April 06, 2025 2:51:00 PM UTC (TECH: JCG) 57734-6 Neutrophils/100 leukocytes in Blood H 68.9 % 43 % - 65 % March 2:51:00 PM UTC (TECH: JCG) 736-9 Lymphocytes/100 leukocytes in Blood by Automated count N 22.4 % 20.5 % - 45.5 % April 06, 2025 2:51:00 PM UTC (TECH: JCG) 5905-5 Monocytes/100 leukocytes in Blood by Automated count L 5.4 % 5.5 % - 11.7 % April 06, 2025 2:51:00 PM UTC (TECH: JCG) 713-8 Eosinophils/100 leukocytes in Blood by Automated count N 2.6 % 0.9 % - 2.9 % April 06, 2025 2:51:00 PM UTC (TECH: JCG) 706-2 Basophils/100 leukocytes in Blood by Automated count N 0.4 % 0.2 % - 1.0 % April 06, 2025 2:51:00 PM UTC (TECH: JCG) 31583-5 Immature granulocytes/100 leukocytes in Blood by Automated count N 0.3 % 0.0 % - 0.8 % April 06, 2025 2:51:00 PM UTC (TECH: JCG) 29517-7 Nucleated cells [#/volume] in Blood N 0.0 % March 2:51:00 PM UTC (TECH: JCG) 75294-9 Neutrophils [#/volume] in Blood H 5.4 K/uL 2.2 K/uL - 4.8 K/uL April 06, 2025 2:51:00 PM UTC (TECH: JCG) 731-0 Lymphocytes [#/volume] in Blood by Automated count N 1.8 CELL/MCL 1.3 CELL/MCL - 2.9 CELL/MCL April 06, 2025 2:51:00 PM UTC (TECH: JCG) 742-7 Monocytes [#/volume] in Blood by Automated count N 0.4 CELL/MCL 0.3 CELL/MCL - 0.8 CELL/MCL April 06, 2025 2:51:00 PM UTC (TECH: JCG) 711-2 Eosinophils [#/volume] in Blood by Automated count N 0.2 CELL/MCL 0 CELL/MCL - 0.2 CELL/MCL April 06, 2025 2:51:00 PM UTC (TECH: JCG) 704-7 Basophils [#/volume] in Blood by Automated count N 0.0 CELL/MCL 0.0 CELL/MCL - 1.0 CELL/MCL April 06, 2025 2:51:00 PM UTC (TECH: JCG) 49243-6 Immature granulocytes [#/volume] in Blood N 0.02 K/ul March 2:51:00 PM UTC (TECH: JCG) 85861-6 Nucleated cells [#/volume] in Blood N 0.00 K/uL March 2:51:00 PM UTC (TECH: JCG) 36110-5 Manual Differential panel - Blood N NO April 06, 2025 2:51:00 PM UT (TECH: JCG) ORDER 200: COMP METABOLIC PA ELLIE (LOINC: 59506-5) ORDER DATE: April 06, 2025 2:23:00 PM UT Specimen Source: PLASMA Specimen Type: Plasma specim en PERFORMING LAB: [address] [id number] Result Comment: Final Result Date: April 06, 2025 3:11:00 PM UT (TECH: JNJ) LOINC TEST FLAG RESULT REFERENCE RANGE UPDA KEEGAN BY 2951-2 Sodium [Moles/volume ] in Serum or Plasma N 139 mmol/L 136 mmol/L - 145 mmol/L April 06, 2025 3:11:00 PM UT (TECH: JNJ) 2823-3 Potassium [Moles/volume] in Serum or Plasma N 3.7 mmol/L 3.6 mmol/L - 5.0 mmol/L April 06, 2025 3:11:00 PM UT (TECH: Quandoo) 2075-0 Chloride [Moles/volume] in Serum or Plasma N 100 mmol/L 98 mmol/L - 107 mmol/L April 06, 2025 3:11:00 PM UT (TECH: JNJ) 8-9 Carbon dioxide, tota l [Moles/volume] in Serum or Plasma N 30.3 mmol/L 21.0 mmol/L - 32.0 mmol/L April 06, 2025 3:11:00 PM UT (TECH: Quandoo) 00806-9 Anion gap in Blood N 12.4 S [id number] 3:11:00 PM UTC (TECH: JNJ) 2345-7 Glucose [Mass/volume ] in Serum or Plasma N 97 mg/dl 70 mg/dl - 120 mg/dl April 06, 2025 3:11:00 PM UT (TECH: JNJ) 6299-2 Urea nitrogen [Mass/volume] in Blood N 11 mg/dL 7 mg/dL - 18 mg/dL April 06, 2025 3:11:00 PM UTC (TECH: JNJ) 72332-5 Creatinine [Moles/volume] in Blood N 1.1 mg/dL 0.6 mg/dL - 1.3 mg/dL April 06, 2025 3:11:00 PM UT (TECH: Quandoo) 97119-4 Glomerular filtratio n rate/1.73 sq M.predicted by Creatinine-based formula (MDRD) L 58 mlpermin 60 mlpermin April 06, 2025 3:11:00 PM UT (TECH: Quandoo) 67318-1 Osmolality of Serum or Plasma by calculated by sum of electrolytes N 288 mosm/kg 275 mosm/kg - 301 mosm/kg April 06, 2025 3:11:00 PM UT (TECH: Quandoo) 2885-2 Protein [Mass/volume ] in Serum or Plasma N 7.9 g/dl 6.4 g/dl - 8.2 g/dl April 06, 2025 3:11:00 PM [facility] (TECH: Quandoo) 1751-7 Albumin [Mass/volume ] in Serum or Plasma N 3.4 g/dl 3.4 g/dl - 5.0 g/dl April 06, 2025 3:11:00 PM UT (TECH: Quandoo) 2336-6 Globulin [Mass/volum e] in Serum N 4.5 April 06, 2025 3:11:00 PM UT (TECH: Quandoo) 1759-0 Albumin/Globulin [Ma ss Ratio] in Serum or Plasma N 0.8 0.7 - 2 April 06, 2025 3:11:00 PM UT (TECH: Quandoo) 26767-3 Calcium [Mass/volume ] in Serum or Plasma N 9.3 mg/dl 8.5 mg/dl - 10.5 mg/dl April 06, 2025 3:11:00 PM UT (TECH: Quandoo) 1975-2 Bilirubin.total [Mass/volume] in Serum or Plasma N 0.40 mg/dL 0.10 mg/dL - 1.00 mg/dL April 06, 2025 3:11:00 PM UT (TECH: Quandoo) 1920-8 Aspartate aminotransferase [Enzymatic activity/volume] in Serum or Plasma N 17 U/L 0 U/L - 37 U/L April 06, 2025 3:11:00 PM UT (TECH: Quandoo) 1742-6 Alanine aminotransferase [Enzymatic activity/volume] in Serum or Plasma N 16 U/L 0 U/L - 65 U/L April 06, 2025 3:11:00 PM UT (TECH: JNJ) 6768-6 Alkaline phosphatase [Enzymatic activity/volume] in Serum or Plasma N 98 U/L 46 U/L - 116 U/L April 06, 2025 3:11:00 PM UTC (TECH: JNJ) ORDER 300: C-REACTIVE PROTEI N CRP (LOINC: 1987-11) ORDER DATE: April 06, 2025 2:23:00 PM UTC Specimen Source: PLASMA Specimen Type: Plasma specim en PERFORMING LAB: [address] [id number] Result Comment: Final Result Date: April 06, 2025 3:11:00 PM UT (TECH: JNJ) LOINC TEST FLAG RESULT REFERENCE RANGE UPDA KEEGAN BY 1987-11 C reactive protein [Mass/volume] in Serum or Plasma H 3.6 mg/dL 0.05 mg/dL - 0.300 mg/dL April 06, 2025 3:11:00 PM UT (TECH: JNJ) LABORATORY NARRATIVE RESULTS Information is not available RADIOLOGY RESULTS Information is not available PATHOLOGY NARRATIVE RESULTS Information is not available MICROBIOLOGY RESULTS No Micro Labs/Results Exist for Patient BLOOD ADMIN RESULTS Information is not available MEDICATIONS HOME MEDICATIONS Status RXNORM NDC Medication Dose Route Frequency Dates Comments Reported By Updated By Drug Treatment Unknown DISCHARGE MEDICATIONS Status RXNORM NDC Medication Dose Route Frequency Dates Dis pense Data Comments Physician Updated By No Discharge Medication Info rmation Available INPATIENT MEDICATIONS Status RXNORM ND Medication Dose Route Frequency Rat e Quantity Dates Indication Dispense Data Comments Physician Updated By Rios inued [id number] 601 dexamethaso ne (DECADRON) 10 MG/ML SOLN 10.0 MG INTRAV ENOUS ONE TIME ONLY (SCHEDULED DOSE) Start: 2024 2:34:0 0 PM UTC End: 2024 2:34:0 0 PM UTC [facility] INTERFAC ED on 2024 2:32:00 PM UT Rios inued [id number] 5327 9379 501 ketorolac (TORADOL) 30 MG/ML SOLN 30.0 MG ONE TIME ONLY (SCHEDULED DOSE) Start: 2024 2:34:0 0 PM UTC End: 2024 2:34:0 0 PM UTC [facility] INTERFAC ED on 2024 2:33:00 PM UTC Discont inued [id number] [id number] 303 fluorescein OPHTH STRIP 0.6 MG STRP 1.0 EA RIGHT EYE - OPHTHA LMIC ONE TIME ONLY (SCHEDULED DOSE) Start: 2024 3:02:0 0 PM UTC End: 2024 3:02:0 0 PM UTC LINDA ALVAREZ N INTERFAC ED on 2024 3:02:00 PM UTC SOCIAL HISTORY SOCIAL HISTORY - Smoking Status SNOMED-CT Social History Element Description Effective Dates Offered Cessation Comment Updated By [id number] Current Tobacco smoking status Current Some Day Smoker [id number] on April 06, 2025 2:23:10 PM UT [id number] Historical Tobacco smoking status Current Every Day Smoker [id number] on December 03, 2024 12:03:01 PM UT SOCIAL HISTORY - Gender Sex: Female SOCIAL HISTORY - Status : status i nformation is not available Intention in Next Year: intention information is not available SOCIAL HISTORY - Assessments Code System Description Status Date Value of Assessment Updated By Comment Assessment Information is no t available SOCIAL HISTORY - [place] Affiliation [place] information is not av ailable SOCIAL HISTORY - Legal Sex Legal Sex information is not available SOCIAL HISTORY - Sexual Behavior Sexual Orientation Gender Identity SNOMED-CT Description SNO MED -CT Description Activity Level No of Partners Partner Type UpdatedBy Information is not available SOCIAL HISTORY - Occupation Occupation information is no t available VITAL SIGNS PATIENT VITAL SIGNS This section displays the st recent value for each vital sign as of April 09, 2025 5:38:56 AM UT Loinc Code Vital Sign Activity Date Result Updated By 8302-2 Body height April 06 2:21:06 PM UT 152.4 cm (60.0 in) [id number] on April 06, 2025 2:21:06 [place] [address]-6 Body mass index (BMI ) [Ratio] April 06, 2025 2:21:06 PM UTC 58.125 kg/m2 3140-1 Body Surface Area Derived From Formula April 06, 2025 2:21:06 PM UTC 2.2102 m2 8310-5 Body temperature April 06 2:10:00 PM UTC 97.3 [degF] 04951-3 Body weight Measured March 192024 2:21:06 PM UTC 135.0 kg (298.0 lb) [id number] on April 06, 2025 2:21:06 PM UTC 8462-4 Diastolic blood pressure April 06, 2025 2:30:00 PM UTC 87.0 mm[Hg] 8867-4 Heart rate April 06 3:50:00 PM UTC 70 /min 83552-7 Oxygen saturation in Arterial blood by Pulse oximetry April 06, 2025 3:50:00 PM UTC 96.0 % 9279-1 Respiratory rate April 06 3:50:00 PM UTC 20 /min 8480-6 Systolic blood pressure April 06, 2025 2:30:00 PM UTC 165.0 mm[Hg] PEDIATRIC GROWTH CHART - VITAL SIGNS This section displays Head C ircumference Percentile, Weight for Length Percentile and BMI Percentile Loinc Code Pediatric Measure Age (Months) Result Updat ed By No Pediatric Growth Chart Pe rcentile Information Available. HEALTH CONCERNS Problems Concern Status Health Concern problem infor mation not available. Smoking Status Status Years Used Consumed packs p er day Health Concern smoking histo ry information not available. Family History Concern Status Health Concern family histor y information not available. ENCOUNTERS ENCOUNTER INFORMATION Reason for Visit EYE PROBLEM & FEELS LIKE BRAIN IS INFECTED Admission April 06, 2025 2:02:00 PM UT C [address] [address] Discharge April 06, 2025 4:08:00 PM UT C DISCHARGED TO HOME OR SELF CARE ENCOUNTER DIAGNOSES Notes information is not carina ilable. Code System Diagnosis Onset Date Diagnosis information is not available. ABSTRACT DIAGNOSES Code System Diagnosis Updated By Abatement Date M54.2 ICD10 CERVICALGIA [id number] on Mar 5:38:32 AM UTC H57.11 ICD10 OCULAR PAIN, RIGHT EYE [id number] on April 09, 2025 5:38:32 AM UTC R51.9 ICD10 HEADACHE, UNSPECIFIED [id number] 1 on April 09, 2025 5:38:32 AM UTC S46.812A ICD10 STRAIN OF OTHER MUSCLES, FASCIA AND TENDONS AT SHOULDER AND UPPER ARM LEVEL, LEFT ARM, INITIAL ENCOUNTER [id number] on April 09, 2025 5:38:32 AM UTC H10.9 ICD10 UNSPECIFIED CONJUNCTIVITIS Q [id number] on April 09, 2025 5:38:32 AM UTC F17.210 ICD10 NICOTINE DEPENDE NCE, CIGARETTES, UNCOMPLICATED [id number] on April 09, 2025 5:38:32 AM UTC X58.XXXA ICD10 EXPOSURE TO OTHE R SPECIFIED FACTORS, INITIAL ENCOUNTER [id number] on April 09, 2025 5:38:32 AM UT CARE TEAM Care Air Table Operator Role DEFINED NO Referring DEFINED NO Primary Care KIM MCKEON Admitting KIM MCKEON Primary Attending CARE TEAM CARE waste management specialist Role on Team Location Telecom Status Start Date End Yannick e Updated By NO DEFINED PRIMARY C Referring normal April 06, 2025 2:19:24 PM [facility] April 06, 2025 4:08:00 PM [facility] [id number] on April 06, 2025 2:19:24 PM [facility] LINDA Park Attending normal April 06, 2025 2:19:24 PM [facility] April 06, 2025 4:08:00 PM [facility] [id number] on April 06, 2025 2:19:24 PM [facility] LINDA Park Admitting normal April 06, 2025 2:19:24 PM [facility] April 06, 2025 4:08:00 PM [facility] [id number] on April 06, 2025 2:19:24 PM [facility] NO DEFINED PRIMARY C PCP normal April 06, 2025 2:03:14 PM UT April 06, 2025 4:08:00 PM [facility] [id number] on April 06, 2025 2:19:24 PM [facility]
--- OUTSIDE RECORDS SUMMARY | 2025-04-27 | XMS_ITS | Continuity of Care Document ---
Author Organization [facility] Phone Care Team Providers Care Technologist Infectious Disease Name Role Phone TONY NDIAYE Admitting Unavailable NO, DEFINED P Primary Care Unavailable TONY NDIAYE Primary Attending Unavailable NO, DEFINED P Unavailable Unavailable ALLERGIES AND ADVERSE REACTIONS ALLERGIES AND ADVERSE REACTIONS Code System Allergy Substance Adverse Reaction Date Reaction (Severity) Comment Status Reported By Updated By No Known Allergies [id number] on April 25, 2025 5:56:24 PM [facility] RESULTS Patient: ADONIS FELIX Date of : 1965 1 LABORATORY RESULTS Information is not available LABORATORY NARRATIVE RESULTS Information is not available RADIOLOGY RESULTS ORDER 100: KNEE 1 TO 2V LT ( LOINC: 17629-9) ORDER DATE: April 25, 2025 5:57:00 PM [facility] PERFORMING LAB: [address] [id number] Final Result Date: April 7:02:[address] [address] Name: ELVIRA LAMB Exam Date: 04/25/2025 : 1965 Age 59 years Gender: F Physician: ANH GLOVER Facility: [facility] Facility HSV: Outpatient Exam: KNEE 1 TO 2V LT LEFT KNEE HISTORY: Left knee pain. COMPARISON: None VIEWS: 1 or 2 views. FINDINGS: No fracture or malalignment. Mild degenerative joint disease. IMPRESSION: No acute findings. Electronically signed by: Ariel Cevallos MD 04/25/2025 03:02 PM EDT Dictated By: Ariel Cevallos Transcribed By: Transcribed On: 04/25/2025 3:02 PM Electronically signed by: Ariel Cevallos 04/25/2025 Thank you [facility] referring [facility]. Legally authenticated by LONNIE GRAVES 2025-04-25 15:02:57 PATHOLOGY NARRATIVE RESULTS Information is not available [...] Info rmation Available INPATIENT MEDICATIONS Status RXNORM NDC Medication Dose Route Frequency Rat e Quantity Dates Indication Dispense Data Comments Physician Updated By Rios [facility] [id number] 1068 201 ibuprofen (MOTRIN) 400 MG TABS 400.0 MG ORAL ONE TIME ONLY (SCHEDULED DOSE) Start: [facility] 2024 6:35:0 0 PM [facility] End: [facility] 2024 6:35:0 0 PM [place] [facility] ED on April 25, 2025 6:35:00 PM [facility] SOCIAL HISTORY SOCIAL HISTORY - Smoking Status SNOMED-CT Social History Element Description Effective Dates Offered Cessation Comment Updated By [id number] Current Tobacco smoking status Current Every Day Smoker [id number] on April 25, 2025 5:56:29 PM [facility] [id number] Historical Tobacco smoking status Current Some Day Smoker [id number] on April 06, 2025 2:23:10 PM [facility] SOCIAL HISTORY - Gender Sex: Female SOCIAL HISTORY - Status : status i nformation is not available Intention in Next Year: intention information is not available SOCIAL HISTORY - Assessments Code System Description Status Date Value of Assessment Updated By Comment Assessment Information is no t available SOCIAL HISTORY - [place] Affiliation [place] information is not av ailable SOCIAL HISTORY - Legal Sex Legal Sex information is not available SOCIAL HISTORY - Sexual Behavior Sexual Orientation Gender Identity SNOMED-CT Description SNO MED -CT Description Activity Level No of Partners Partner Type UpdatedBy Information is not available SOCIAL HISTORY - Occupation Occupation information is no t available VITAL SIGNS PATIENT VITAL SIGNS This section displays the mo st recent value for each vital sign as of April 27, 2025 5:00:42 AM UTC Loinc Code Vital Sign Activity Date Result Updated By 8302-2 Body height April 25, 2025 5:55:13 PM UTC 152.4 cm (60.0 in) [id number] on April 25, 2025 5:55:13 PM UTC 8310-5 Body temperature April 25, 2025 7:30:00 PM UTC 97.9 [degF] 8462-4 Diastolic blood pressure April 25, 2025 7:30:00 PM UTC 75.0 mm[Hg] 8867-4 Heart rate April 25, 2025 7:30:00 PM UTC 92 /min 69686-7 Oxygen saturation in Arterial blood by Pulse oximetry April 25, 2025 7:30:00 PM UTC 98.0 % 9279-1 Respiratory rate April 25, 2025 7:30:00 PM UTC 20 /min 8480-6 Systolic blood pressure April 25, 2025 7:30:00 PM UTC 133.0 mm[Hg] PEDIATRIC GROWTH CHART - VITAL SIGNS [...] available. ENCOUNTERS ENCOUNTER INFORMATION Reason for Visit KNEE INJURY 03/28 Admission April 25, 2025 5:44:00 PM UTC G [address] [address] Discharge April 25, 2025 7:44:00 PM UTC D ISCHARGED TO HOME OR SELF CARE ENCOUNTER DIAGNOSES Notes information is not carina ilable. Code System Diagnosis Onset Date Diagnosis information is not available. ABSTRACT DIAGNOSES Code System Diagnosis Updated By Abatement Date S89.92XA ICD10 UNSPECIFIED INJU RY OF LEFT LOWER LEG, INITIAL ENCOUNTER [id number] on April 27, 2025 5:00:07 AM UTC M25.562 ICD10 PAIN IN LEFT KNEE [id number] on April 27, 2025 5:00:07 AM UTC M25.562 ICD10 PAIN IN LEFT KNEE [id number] on April 27, 2025 5:00:07 AM UTC Z72.0 ICD10 TOBACCO USE [id number] on 2024 5:00:07 AM UTC Z95.0 ICD10 PRESENCE OF CARDIAC PACEMAKE R [id number] on April 27, 2025 5:00:07 AM UTC CARE TEAM Care Technologist Infectious Disease Role TONY NDIAYE Admitting DEFINED NO Primary Care TONY NDIAYE Primary Attending DEFINED NO Referring CARE TEAM CARE pattern data operator Role on Team Location Telecom Status Start Date End Yannick e Updated By NO DEFINED PRIMARY C Referring normal April 25, 2025 6:33:38 PM [place] April 25, 2025 7:44:00 PM UTC [id number] on April 25, 2025 6:33:38 PM UTC [facility] Attending normal April 25, 2025 6:33:38 PM UTC April 25, 2025 7:44:00 PM UTC [id number] on April 25, 2025 6:33:38 PM UTC [facility] Admitting normal April 25, 2025 6:33:38 PM UTC April 25, 2025 7:44:00 PM UTC [id number] on April 25, 2025 6:33:38 PM UT NO DEFINED PRIMARY C PCP normal April 25, 2025 5:44:49 PM UTC April 25, 2025 7:44:00 PM UTC [id number] on April 25, 2025 6:33:38 PM UTC
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
--- OUTSIDE RECORDS SUMMARY | 2025-05-22 14:07 | XMS_ITS | Referral Summary ---
Author Organization [email or web address] ([place], [place], [place], [place], [place]) Address [address] [place] [id number] Care Team Providers Care Assistant Terminal Manager Name Role Phone Unavailable Primary Care Provider [...] Date Francis rded Speak language other than Salvadorean at home Not on file 08/06/2023 Want help with school or training Not on file 08/06/2023 Substance Use Answer Date Recorded Used prescription meds for non-medical reasons N ot on file 08/06/2023 Used illegal drugs past 12 months Not on file 08/06/2023 Comments Unknown Sex and Gender Information Value Date Recorded Sex Assigned at Not on file Legal 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
--- OUTSIDE RECORDS SUMMARY | 2025-05-22 14:07 | XMS_ITS | Clinical Summary ---
Author Organization [employer] ([place], [place], [place], [place], [place]) Address [address] [place] [address] Care Team Providers Care Assembler Arranger Name Role Phone Unavailable Primary Care Provider [...] Date Francis rded Speak language other than Welsh at home Not on file 08/06/2023 Want help with school or training Not on file 08/06/2023 Substance Use Answer Date Recorded Used prescription meds for non-medical reasons N ot on file 08/06/2023 Used illegal drugs past 12 months Not on file 08/06/2023 Comments Unknown Sex and Gender Information Value Date Recorded Sex Assigned at Not on file Legal Sex Female 7:50 AM SHEARING SHED HAND Gender Identity Not on file Sexual Orientation Not on file Plan of Treatment Not on file Insurance [facility]ANADRIENNE [facility]
--- OUTSIDE RECORDS SUMMARY | 2025-05-22 14:07 | XMS_ITS | Clinical Summary ---
Author Organization [facility] Address [address] [id number] Care Team Providers Care Mathematician Research Name Role Phone Kadeem Esparza MD Primary Care Provider [phone] Allergies No known active allergies Medications furosemide [...] 01/26/2018 COLORECTAL CANCER SCREENING 01/27/2028 Insurance AETNA [facility] Care Teams Mathematician Research Relationship Specialty Start Date End Date Kadeem Esparza MD [address] [facility] [address] ATTN: [place] [address] PCP - General Emergency Medicine 04/28/22
--- OUTSIDE RECORDS SUMMARY | 2025-05-22 14:07 | XMS_ITS | Clinical Summary ---
Author Organization [facility] Address [address] [place] [address] Care Team Providers Care Aircraft Mechanic Structures Name Role Phone Kadeem Esparza MD Primary Care Provider + [phone] Allergies No known active allergies Medications No [...] drink first t ivis in the morning (EYE-PUGGER HELPER) to steady your nerves or to get [...] - Risk 60-74 years 1-dose series) 2024 [id number] Vaccine (1 - 20 24-25 season) 2025 [...] ORDERABLES Final Res ult Performing Organization Address City/[facility] Co de Phone Number [facility] [address] [place] [address] * Hepatitis C Antibody - ED (07/07/2022 7:38 AM EST) Hepatitis C Antibody Negative Negative 07/07/2022 9:43 AM EST [facility] Blood Venous blood specimen / Unknown Venipuncture / Unknown 07/07/2022 7:38 AM EST 07/07/2022 8:43 AM EST us Sagar Rivera MD LAB BLOOD ORDERABLES Final Res ult Performing Organization Address City/[facility] Co de Phone Number [facility] [address] [place] [address] * COLONOSCOPY (01/26/2018) Anatomical Region Laterality Modality Endoscopy Narrative 01/26/2018 Ordered by an unspecified provider. us Historical Provider GI PROCEDURE ORDERABLES Yvonne l Result from Last 3 Months or Most Recently Relevant to Health Maintenance Insurance [employer] Care Teams Aircraft Mechanic Structures Relationship Specialty Start Date End Date Kadeem Esparza MD [address] [place] [address] PCP - General 11/28/20
[2025-05-22 14:47] LABS: Hematocrit 38.7 % (37.0-47.0); Hemoglobin 12.1 g/dL (12.2-16.2); Immature Granulocytes % 0.2 %; Mean Corpuscular HGB Conc 31.3 g/dL (31.8-35.4); Mean Corpuscular Hemoglobin 26.0 pg (27.0-31.2); Mean Corpuscular Volume 83.0 fl (81-99); Nucleated Red Blood Cells % 0 %; Platelet Count 314 K/mm3 (142-424); Red Blood Count 4.66 M/mm3 (4.20-5.40); Red Cell Distribution Width-SD 45.2 fL; White Blood Count 8.8 K/mm3 (4.8-10.8)
[2025-05-22 15:04] LABS: Albumin Level 4.3 g/dl (3.5-5.0)
[2025-05-22 15:05] LABS: Chloride 104 mmol/L (98-107); Potassium 4.1 mmoL/L (3.5-5.1); Sodium 141 mmol/L (136-145)
[2025-05-22 15:07] LABS: Alanine Aminotransferase 14 U/L (12-78); Aspartate Amino Transferase 23 U/L (14-36); Bilirubin,Unconjugated 0.3 mg/dL (0.0-1.1); Blood Urea Nitrogen 17 mg/dl (7-17); Creatinine,Serum 1.00 mg/dl (0.52-1.04); Estimated Glomerular Filt Rate 57 ml/min (>60); GFR (African American) 68 ML/MIN (>60)
[2025-05-22 15:08] LABS: Alkaline Phosphatase 90 U/L (38-126); Anion Gap 8.1 mEq/L (5-15); Bilirubin,Direct 0.2 mg/dl (0.0-0.4); Bilirubin,Indirect 0.3 mg/dL (0.0-0.9); Bilirubin,Total 0.5 mg/dl (0.2-1.3); Calcium 9.0 mg/dl (8.4-10.2); Carbon Dioxide 33 mmol/L (22.0-30.0); Cholesterol 292 mg/dl (140-200); Glucose 108 mg/dl (74-100); HDL Cholesterol 61 mg/dl (40-60); Magnesium 1.7 mg/dl (1.6-2.3); Total Protein,Serum 6.5 g/dl (6.3-8.2); Triglycerides 59 mg/dl (30-150)
[2025-05-22 15:25] LABS: Free T4 (Free Thyroxine) 1.30 ng/dl (0.78-2.19)
[2025-05-22 15:34] LABS: Hemoglobin A1C 6.1 % (4.0-6.0)
[2025-05-22 15:39] LABS: Thyroid Stimulating Hormone 1.91 uIU/mL (0.465-4.68)
== END 2025-05-22 23:59 | disposition home or self-care (01) ==
PROVIDERS: PCP Student in an Organized Health Care Education/Training Program; Visit Provider Internal Medicine
DX: E78.5 Hyperlipidemia, unspecified (principal); I11.0 Hypertensive heart disease with heart failure; I50.42 Chronic combined systolic (congestive) and diastolic (congestive) heart failure; E66.01 Morbid (severe) obesity due to excess calories; E87.1 Hypo-osmolality and hyponatremia; E87.5 Hyperkalemia; Z95.810 Presence of automatic (implantable) cardiac defibrillator
CPT/HCPCS: 36415; 80048; 80061; 80076; 83036; 83735; 84439; 84443; 85025

== ENCOUNTER 2025-05-30 12:39 | Outpatient (CLI) | payer OTHER, SELFPAY ==
--- NOTE | 2025-05-30 | CA_ITS ---
APPROVED REPORT Exam: Pharmacologic Technologist: Zita Can Stress Nurse: Nay VAZQUEZ RN Ht: 5 ft 0 in Wt: 307 lbs BSA: 2.24 m2 HR: 93 bpm BP: 198/77 mmHg Indications: Chest Pain, Dyspnea, Hypertension Stress Test Details Test: Lexiscan HR Resting HR: 93 bpm Max Heart Rate (APMHR): 160.701023 bpm Max HR Achieved: 105 bpm Target HR (85% APMHR): 136.003958 bpm % of APMHR: 65.63 Recovery HR: 79 bpm BP Resting BP: 198.0/77.0 mmHg Max BP: 216.0/85.0 mmHg Recovery BP: 188.0/72.0 mmHg BP response to stress: Abnormal hypertensive response to stress. ECG Stress ECG Conclusion Lungs clear to auscultation prior to start. Symptoms: Mild dyspnea, and headache. Arrhythmias/Ectopy: None ST-T changes: Less than 0.5mm upsloping ST segment changes. Conclusion: Nondiagnostic ECG/Lexiscan Hypertensive response. Electronically signed by : Nicci Briggs MD 06/04/2025 01:12:47
--- OUTSIDE RECORDS SUMMARY | 2025-05-30 12:42 | XMS_ITS | Clinical Summary ---
Author Organization [facility] Address [address] [id number] Care Team Providers Care Safety Deposit Boxes Custodian Name Role Phone Kadeem Esparza MD Primary Care Provider Allergies No known active allergies Medications furosemide [...] 01/26/2018 COLORECTAL CANCER SCREENING 01/27/2028 Insurance AETNA [facility] Care Teams Safety Deposit Boxes Custodian Relationship Specialty Start Date End Date Kadeem Esparza MD [address] [facility] [address] ATTN: [place] [address] PCP - General Emergency Medicine 04/28/22
--- OUTSIDE RECORDS SUMMARY | 2025-05-30 12:42 | XMS_ITS | Referral Summary ---
Author Organization [employer] ([place], [place], [place], [place], [place]) Address [address] [place] [id number] Care Team Providers Care Health Associate Name Role Phone Unavailable Primary Care Provider [...] Date Francis rded Speak language other than Romansh at home Not on file 08/06/2023 Want help with school or training Not on file 08/06/2023 Substance Use Answer Date Recorded Used prescription meds for non-medical reasons N ot on file 08/06/2023 Used illegal drugs past 12 months Not on file 08/06/2023 Comments Unknown Sex and Gender Information Value Date Recorded Sex Assigned at Not on file Legal Sex Female 7:50 AM SALES REPRESENTATIVE 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
--- OUTSIDE RECORDS SUMMARY | 2025-05-30 12:42 | XMS_ITS | Clinical Summary ---
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
--- OUTSIDE RECORDS SUMMARY | 2025-05-30 12:42 | XMS_ITS | Clinical Summary ---
Author Organization Healthcare Address [address] 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) to steady your nerves or to get [...] - Risk 60-74 years 1-dose series) 2024 [id number] Vaccine (1 - 20 24-25 season) 2025 [...] ult Performing Organization Address City/[facility] Co de Phone Number [facility] [address] [place] [address] * Hepatitis C Antibody - ED (07/07/2022 7:38 AM EST) Hepatitis C Antibody Negative Negative 07/07/2022 9:43 AM EST [facility] Blood Venous blood specimen / Unknown Venipuncture / Unknown 07/07/2022 7:38 AM EST 07/07/2022 8:43 AM EST us Sagar Rivera MD LAB BLOOD ORDERABLES Final Res ult Performing Organization Address City/[facility] Co de Phone Number [facility] [address] [place] [address] * COLONOSCOPY (01/26/2018) Anatomical Region Laterality Modality Endoscopy Narrative 01/26/2018 Ordered by an unspecified provider. us Historical Provider GI PROCEDURE ORDERABLES Yvonne l Result from Last 3 Months or Most Recently Relevant to Health Maintenance Insurance [employer] Care Teams House Parent Relationship Specialty Start Date End Date Kadeem Esparza MD [address] [place] [id number] PCP - General 11/28/20
--- NOTE | 2025-05-30 13:00 | NM_ITS ---
APPROVED REPORT Exam: Nuclear Stress Test Indication: Chest pain, SOB, Fatigue, HTN, High cholesterol, Tobacco use, Family history, Pacemaker Patient Location: Outpatient Stress Tech: Zita MICHELLE Tech:[facility] Drake RT(R)(N) Ht: 5 ft 0 in Wt: 309 lbs Bra Size: 40D HR: 80 bpm BP: 198/77 mmHg BSA: 2.25 m2 TID: 1.14 History: Chest pain, SOB, Fatigue, HTN, High cholesterol, Tobacco use, Family history, Pacemaker Procedure: Patient received 0.4 mg of intravenous Lexiscan, resting heart rate 80 bpm, resting blood pressure 198/77 mmHg, with Lexiscan maximum heart rate achieved was 105 bpm which is % of the maximum predicted heart rate and blood pressure was 216/85 mmHg. With Lexiscan, patient denied any complaint of chest pain. Cardiac Stress and Resting SPECT Images: Cardiac Stress and Resting SPECT images were obtained using technetium 99m Myoview 32.8 mCi stress and 10.55 mCi at rest. Resting and stress imaging in supine and prone positions demonstrate a medium sized, moderate, partially reversible perfusion defect in the basal to mid lateral LV wall. Gated imaging demonstrates normal global LV systolic function. LVEF is calculated at 58%. Conclusion: Medium sized, moderate, partially reversible perfusion defect in the basal to mid lateral LV wall. Gated imaging demonstrates normal global LV systolic function. LVEF is calculated at 58%. Of note, the patient's blood pressure is markedly elevated at baseline. BP control is recommended. Electronically signed by : Nicci Briggs MD 06/03/2025 14:12:33
[2025-05-30 14:05] VITALS: BP 198/77; PULSE 93; RESP 16
[2025-05-30] MEDS: ISOTOPE MYOVIEW (PER STUDY) 1 DOSE IV (14:17)
[2025-05-30] MEDS: SODIUM CHLORIDE 0.9% 10ML SYR (RAD ONLY) 10 ML IV ×2 (14:17)
[2025-05-30 14:37] VITALS: BMI 59.9
--- NOTE | 2025-05-30 15:15 | CA_ITS ---
APPROVED REPORT EXAM: Comprehensive 2D, Doppler, and color-flow Echocardiogram Mechanical Maintenance: Raiza Torres, HOWIE, RVS Ht: 5 ft 0 in Wt: 300lbs BSA: 2.22 BP: 213/99 mmHg Indications: HTN, LVH, Pacer, CP, Obesity, Edema, Fatigue 2D Dimensions IVSd 1.06 cm F: 0.6-1.0 LVEF (Visual) 53.80 % PWd 1.11 cm F: 0.6 - 1.0 LA Volume 99.30 mL LVDd 4.45 cm F: 3.9 - 5.3 LA Volume Index 44.73 mL/m2 (M/F) 16-34 LVDs 3.22 cm F: 2.2 - 3.5 Left Atrium 3.95 cm F: 2.7 - 3.8 M-Mode Dimensions RVDd 1.37 cm (0.9-2.6) LA Diam 4.00 cm (1.9-4.0) LVDd 4.93 cm (3.5-5.7) LVDs 3.35 cm (3.5-5.7) IVSd 1.21 cm (0.6-1.1) PWd 1.27 cm (0.6-1.1) EF (Teich) 60.00% EPSs 0.34 cm FS 32.00% EDV (Teich) 114.40 mL TAPSE 2.13 (<1.7) ESV (Teich) 45.80 mL LV Diastology E Decel Time 223 (160-240 msec) E/A Ratio 1.34 MED A' 11.30 cm/s LAT A' 6.10 cm/s Aortic Valve MEAGAN Index 1.02 cm2/m2 AoV Peak Ace. 158.0 (50-130 cm/s) AO Peak GR. 10.00 mmHg AO Mean GR. 4.90 (<5 mmHg) AO VTI 34.2 (18-25 cm) MEAGAN (VTI) 2.32 (2.5-4.5 cm2) Mitral Valve MV A Velocity 71.0 (40-130 cm/s) E/A Ratio 1.34 Pulmonary Valve PV Peak Velocity 108.0 (50-150 cm/s) Tricuspid Valve TR P. Velocity 268.00 cm/s RAP Estimate 10.00 mmHg RVSP 38.70 mmHg Left Ventricle The left ventricle is normal size. Left ventricular systolic function is low normal. There is increased left ventricular wall thickness. There is normal LV segmental wall motion. The left ventricular diastolic function is normal. LVEF is 50% Right Ventricle The right ventricle is mildly dilated. There is a device lead in the right ventricle. The right ventricular systolic function is normal. Atria Left atrium is mildly dilated. Right atrium is mildly dilated. There is no color Doppler evidence of interatrial shunt. Aortic Valve The aortic valve is mildly thickened. There is no hemodynamically significant aortic valvular stenosis. Trace aortic regurgitation is present. Mitral Valve The mitral valve is normal in structure. No evidence of mitral valve stenosis. Mild mitral regurgitation is present. Tricuspid Valve The tricuspid valve leaflets are thin and pliable. Mild to moderate tricuspid regurgitation. RVSP is 30-35 mmHg. Pulmonic Valve The pulmonary valve is grossly normal in structure. Trace pulmonic valve regurgitation is present. Great Vessels The aortic root is normal in size. IVC is normal in size and collapses >50% with inspiration. Pericardium There is no pericardial effusion. Other Information Study Quality: Fair Conclusion Low normal LV systolic function. Mildly dilated RV with normal RV function. Biatrial dilation. Mild to moderate TR. Mild MR. Electronically signed by : Nicci Briggs MD 06/06/2025 13:03:19
== END 2025-05-30 23:59 | disposition home or self-care (01) ==
LOC: RAD 12:40
PROVIDERS: PCP Student in an Organized Health Care Education/Training Program; Visit Provider Internal Medicine
DX: I08.1 Rheumatic disorders of both mitral and tricuspid valves (principal); I11.0 Hypertensive heart disease with heart failure; I50.42 Chronic combined systolic (congestive) and diastolic (congestive) heart failure; E78.2 Mixed hyperlipidemia; E66.01 Morbid (severe) obesity due to excess calories; E87.1 Hypo-osmolality and hyponatremia; E87.5 Hyperkalemia; R94.39 Abnormal result of other cardiovascular function study; Z95.810 Presence of automatic (implantable) cardiac defibrillator; Z72.0 Tobacco use
CPT/HCPCS: 78452; 93017; 93018; 93306; A9502; J2785